=== PATIENT | male | born 1930 | race Caucasian/White ===

== ENCOUNTER 2017-07-02 18:37 | Inpatient (IN) | payer OTHER ==
--- NOTE | 2017-07-02 20:08 | PDOC ---
History of Present Illness - General History Source: Patient, Family Exam Limitations: No Limitations - History of Present Illness Initial Comments: 07/02/17 20:29 The patient is a 86 year old male, with a significant past medical history of Anemia, Colon CA, Liver CA, [place] (1983), IDDM, Esophageal CA, BPH, HTN, HLD, Ascites who presents to the emergency department with generalized weakness and LE edema. Patient BIB family who states the patient was seen by Dr. Crook and since then has been increasingly weak. Patient complains of decreased appetite. Family states he has developed ascites and lower extremity edema. He denies chest pain, headache or dizziness. He denies fever, chills, abdominal pain, nausea, vomit, diarrhea or constipation. He denies dysuria, frequency, urgency or hematuria. Allergies:Penicillins Past surgical history: CABG, L inguinal hernia repair Social history: None PCP: Saira GI: Neftali Onco: Maggie <Meagan Ellis - Last Filed: 07/03/17 00:00> - General History Source: Patient <Nikolas Martines - Last Filed: 07/03/17 21:37> - General Chief Complaint: Weakness Stated Complaint: ca pt, ascitis, jauindice WEAKNESS Time Seen by Provider: 07/02/17 20:03 Past History <Meagan Ellis - Last Filed: 07/03/17 00:00> - Past Medical History Anemia: Yes (IRON DEFICIENCY ANEMIA) Asthma: No Cancer: Yes (colon) Cardiac Disorders: Yes ([place]-1983) CVA: No COPD: No CHF: No Dementia: No Diabetes: Yes (IDDM) GI Disorders: Yes (MADISON'S ESOPHAGUS,ESOPHAGEAL CANCER) Disorders: Yes (BPH) HTN: Yes Hypercholesterolemia: Yes Liver Disease: Yes (ascitis) Seizures: No Thyroid Disease: No - Surgical History Abdominal Surgery: Yes (lt ing.hernia,colon ca) Appendectomy: No Cardiac Surgery: Yes (cabg) Cholecystectomy: No Lung Surgery: No Neurologic Surgery: No Orthopedic Surgery: No - Immunization History Immunization Up to Date: No - Suicide/Smoking/Psychosocial Hx Smoking History: Never smoked Have you smoked in the past 12 months: No Information on smoking cessation initiated: No Hx Alcohol Use: No Drug/Substance Use Hx: No Substance Use Type: None Hx Substance Use Treatment: No <Nikolas Martines - Last Filed: 07/03/17 21:37> - Past Medical History Allergies/Adverse Reactions: Allergies Allergy/AdvReac Type Severity Reaction Status Date / Time Penicillins Allergy Severe Swelling Verified 07/02/17 18:42 Home Medications: Ambulatory Orders Docosahexanoic Acid/Epa [Fish Oil Softgel] 1 each PO DAILY 11/29/15 Glyburide/Metformin HCl [Glyburide-Metformin 5-500 mg] 2 each PO BID 11/29/15 Latanoprost 0.005% Eye Drops [Xalatan 0.005% Eye Drops -] 1 drop OU DAILY Losartan Potassium [Cozaar -] 25 mg PO DAILY 11/29/15 Simvastatin [Zocor -] 20 mg PO DAILY 11/29/15 Amlodipine Besylate [Norvasc -] 5 mg PO DAILY tablet 01/14/16 Aspirin [Aspirin EC] 81 mg PO DAILY #30 tab 01/14/16 Atenolol [Tenormin -] 50 mg PO DAILY tablet 01/14/16 Calcium Carbonate [Calcium] 500 mg PO DAILY 07/02/17 Omeprazole 20 mg PO DAILY 07/02/17 Saxagliptin HCl [Onglyza] 5 mg PO DAILY 07/02/17 Tamsulosin HCl [Flomax] 0.4 mg PO DAILY 07/02/17 Review of Systems - Review of Systems Able to Perform ROS?: Yes Comments:: 07/02/17 20:30 GENERAL/CONSTITUTIONAL: No fever or chills. +generalized weakness. HEAD, EYES, EARS, NOSE AND THROAT: No change in vision. No ear pain or discharge. No sore throat. GASTROINTESTINAL: No nausea, vomiting, diarrhea or constipation. +Decreased appetite. GENITOURINARY: No dysuria, frequency, or change in urination. CARDIOVASCULAR: No chest pain or shortness of breath. RESPIRATORY: No cough, wheezing, or hemoptysis. MUSCULOSKELETAL: No joint or muscle swelling or pain. No neck or back pain. SKIN: No rash NEUROLOGIC: No headache, vertigo, loss of consciousness, or change in strength/ sensation. ENDOCRINE: No increased thirst. No abnormal weight change. HEMATOLOGIC/LYMPHATIC: No anemia, easy bleeding, or history of blood clots. ALLERGIC/IMMUNOLOGIC: No hives or skin allergy. EXTREMITIES: + LE edema. <Meagan Ellis - Last Filed: 07/03/17 00:00> *Physical Exam - Vital Signs Last Vital Signs Temp Pulse Resp BP Pulse Ox 97.4 F L 68 18 122/60 100 07/02/17 18:42 07/02/17 18:42 07/02/17 18:42 07/02/17 18:42 07/02/17 18:42 - Physical Exam Comments: 07/02/17 20:30 GENERAL: Awake, alert, and fully oriented, in no acute distress. +Icteric. HEAD: No signs of trauma EYES: PERRLA, EOMI, sclera anicteric, conjunctiva clear ENT: Auricles normal inspection, hearing grossly normal, nares patent, oropharynx clear without exudates. Moist mucosa NECK: Normal ROM, supple, no lymphadenopathy, JVD, or masses LUNGS: Breath sounds equal, clear to auscultation bilaterally. No wheezes, and no crackles HEART: Regular rate and rhythm, normal S1 and S2, no murmurs, rubs or gallops ABDOMEN: +distended. +Shifting dullness abdomen. Soft, nontender, normoactive bowel sounds. No guarding, no rebound. EXTREMITIES: Normal range of motion, no edema. No clubbing or cyanosis. No cords, erythema, or tenderness. +Bilateral LE1+pitting edema L greater than R. NEUROLOGICAL: Cranial nerves II through XII grossly intact. Normal speech, normal gait SKIN: Warm, Dry, normal turgor, no rashes or lesions noted. <Meagan Ellis - Last Filed: 07/03/17 00:00> - Vital Signs Last Vital Signs Temp Pulse Resp BP Pulse Ox 97.4 F L 68 18 122/60 100 07/02/17 18:42 07/02/17 18:42 07/02/17 18:42 07/02/17 18:42 07/02/17 18:42 <Nikolas Martines - Last Filed: 07/03/17 21:37> Heart Score/ECG Review #1 07/02/[address] Bobbi Cardona. rate 59 bpm Sinus bradycardia with 1st degree AV block L axis deviation Low voltage QRS Possible anterolateral infarct, age undetermined Abdonrmmal ECG <Meagan Ellis - Last Filed: 07/03/17 00:00> ED Treatment Course - LABORATORY CBC & Chemistry Diagram: 07/02/17 20:48 07/02/17 20:48 <Meagan Ellis - Last Filed: 07/03/17 00:00> - LABORATORY CBC & Chemistry Diagram: 07/03/17 09:31 07/03/17 09:31 <Nikolas Martines - Last Filed: 07/03/17 21:37> Medical Decision Making - Medical Decision Making 07/02/17 23:[address] Chávez's service. Dr Kim service operations manager. Awaiting call back. 07/02/17 23:19 Second call placed to Dr. Kim Awaiting call back. 07/03/17 00:00 Third call placed to Dr. Kim Awaiting call back. <Meagan Ellis - Last Filed: 07/03/17 00:00> - Medical Decision Making 07/03/17 21:36 Dr. Martines: The scribe's documentation has been prepared under my direction and personally reviewed by me in its entirery. I confirm that the note above accurately reflects all work, treatment, procedures, and medical decision making performed by me. <Nikolas Martines - Last Filed: 07/03/17 21:37> *DC/Admit/Observation/Transfer - Attestations Scribe Attestion: 07/02/17 20:30 Documentation prepared by Meagan Ellis, acting as medical administrator for Nikolas Martines DO. <Meagan Ellis - Last Filed: 07/03/17 00:00> - Discharge Dispostion Admit: Yes <Nikolas Martines - Last Filed: 07/03/17 21:37> Diagnosis at time of Disposition: Hyperbilirubinemia, Ascites - Referrals
[2017-07-02 21:05] LABS: BASOPHIL 0.1 % (0-2.0); EOSINOPHIL 0.5 % (0-4.5); MCH 34.4 pg (25.7-33.7); MCHC 34.7 g/dl (32.0-35.9); MEAN CELL VOLUME 99.1 fl (80-96); MEAN PLT VOLUME 9.7 fl (7.5-11.1); NEUTROPHILS 85.1 % (42.8-82.8); PLATELET COUNT 212 K/MM3 (134-434); RDW 17.2 % (11.9-15.9); WHITE BLOOD COUNT 9.8 K/mm3 (4.0-10.0)
[2017-07-02 21:35] LABS: ALBUMIN 1.4 g/dl (3.4-5.0); ANION GAP 8 (8-16); CALCIUM 8.2 mg/dL (8.5-10.1); CO2 21 mmol/L (21-32); CREATININE 1.6 mg/dL (0.7-1.3); GLUCOSE,RANDOM 288 mg/dL (74-106); SGPT/ALT 40 U/L (12-78); TOT PROT 4.9 g/dl (6.4-8.2)
[2017-07-02 21:44] LABS: ALK PHOS 448 U/L (45-117)
[2017-07-02 21:46] LABS: INR 3.8 (0.82-1.09); PROTHROMBIN TIME (PATIENT) 42.9 SEC (9.98-11.88)
[2017-07-02 22:18] LABS: MAGNESIUM 2.1 mg/dL (1.8-2.4); SGOT/AST 144 U/L (15-37)
[2017-07-02 22:19] LABS: BILIRUBIN,TOTAL 18.2 mg/dL (0.2-1.0)
[2017-07-03 01:15] VITALS: BMI 32.3
[2017-07-03] MEDS ORDERED: ACETAMINOPHEN 325 MG TABLET (FP) PO PRN (02:52)
[2017-07-03] MEDS: LOSARTAN POTASSIUM 25 MG TABLET PO SCH ×2 (04:41→10:05)
[2017-07-03] MEDS: INSULIN SLIDING SCALE (NOVOLOG) 1 VIAL SQ SCH ×4 (06:54→22:14)
[2017-07-03] MEDS: glyBURIDE 5 MG TABLET (UD) PO SCH ×2 (06:55→18:00)
[2017-07-03] MEDS ORDERED: metFORMIN HCL 500 MG TABLET (FP) PO SCH (07:00)
--- NOTE | 2017-07-03 07:57 | PN ---
Progress Note (short form) - Note Progress Note: ID Full note dictated Alert no distress couph abd pain fevers chills Selected Entries 07/03/17 06:00 Temperature 98.5 F Pulse Rate 76 Respiratory 18 Rate Blood Pressure 105/48 Lung Clear Cor S1 S2 Abd Distended ascites shifting dullness Ext Edema bilaterally Microbiology Laboratory Tests 07/02/17 07/02/17 07/02/17 20:48 20:48 20:48 WBC 9.8 D Hgb 12.1 D Plt Count 212 D Neutrophils % 85.1 H D Lymphocytes % 4.8 L D INR 3.80 H D BUN 35 H D Creatinine 1.6 H D Random Glucose 288 H D Calcium 8.2 L Total Bilirubin 18.2 H* D AST 144 H D ALT 40 D Alkaline Phosphatase 448 H D Assessment Advanced liver Cancer Doubt SBP Plan OBserve off antibiotics Blood cultures orders ??Comfort care measures Gail YBARRA Problem List - Problems (1) Ascites Code(s): R18.8 - OTHER ASCITES (2) Liver cancer Code(s): C22.9 - MALIG NEOPLASM OF LIVER, NOT SPECIFIED PRIMARY OR SEC
[2017-07-03] MEDS: TAMSULOSIN HCL 0.4 MG CAP.ER.24H (FP) PO SCH (08:27)
--- NOTE | 2017-07-03 08:52 | HP ---
Admitting History and Physical - Admission History of Present Illness: 86 year old male, with a significant past medical history of Anemia, Colon CA, Liver CA, [place] (1983), IDDM, Esophageal CA, BPH, HTN, HLD, Ascites who presents to the emergency department with generalized weakness and LE edema. Patient BIB family who states the patient was seen by Dr. Corok and since then has been increasingly weak. Patient complains of decreased appetite. Family states he has developed ascites and lower extremity edema. He denies chest pain, headache or dizziness. He denies fever, chills, abdominal pain, nausea, vomit, diarrhea or constipation. He denies dysuria, frequency, urgency or hematuria. - Past Medical History Cardiovascular: Yes: HTN, Hyperlipdemia Gastrointestinal: Yes: Cancer (colon), Gastritis Heme/Onc: Yes: Anemia Rheumatology: Yes: Gout Endocrine: Yes: Diabetes Mellitus - Past Surgical History Past Surgical History: Yes: Colectomy, Colonoscopy, Upper Endoscopy - Smoking History Smoking history: Never smoked Have you smoked in the past 12 months: No - Alcohol/Substance Use Hx Alcohol Use: No History of Substance Use: reports: None Home Medications - Allergies Allergies/Adverse Reactions: Allergies Allergy/AdvReac Type Severity Reaction Status Date / Time Penicillins Allergy Severe Swelling Verified 07/02/17 18:42 - Home Medications Home Medications: Ambulatory Orders Docosahexanoic Acid/Epa [Fish Oil Softgel] 1 each PO DAILY 11/29/15 Glyburide/Metformin HCl [Glyburide-Metformin 5-500 mg] 2 each PO BID 11/29/15 Latanoprost 0.005% Eye Drops [Xalatan 0.005% Eye Drops -] 1 drop OU DAILY Losartan Potassium [Cozaar -] 25 mg PO DAILY 11/29/15 Simvastatin [Zocor -] 20 mg PO DAILY 11/29/15 Amlodipine Besylate [Norvasc -] 5 mg PO DAILY tablet 01/14/16 Aspirin [Aspirin EC] 81 mg PO DAILY #30 tab 01/14/16 Atenolol [Tenormin -] 50 mg PO DAILY tablet 01/14/16 Calcium Carbonate [Calcium] 500 mg PO DAILY 07/02/17 Omeprazole 20 mg PO DAILY 07/02/17 Saxagliptin HCl [Onglyza] 5 mg PO DAILY 07/02/17 Tamsulosin HCl [Flomax] 0.4 mg PO DAILY 07/02/17 Review of Systems - Review of Systems Constitutional: reports: Weakness Cardiovascular: denies: Chest Pain Respiratory: reports: SOB on Exertion Gastrointestinal: reports: Bloating, Other (DISTENTION) Genitourinary: reports: No Symptoms Musculoskeletal: reports: Extremity Pain, Muscle Weakness Neurological: denies: Confusion, Headache Physical Examination Vital Signs: Vital Signs Temperature 98.5 F 07/03/17 06:00 Pulse Rate 76 07/03/17 06:00 Respiratory Rate 18 07/03/17 06:00 Blood Pressure 105/48 07/03/17 06:00 O2 Sat by Pulse Oximetry (%) 100 07/02/17 23:15 Neck: Yes: Supple Cardiovascular: Yes: S1, S2 Respiratory: Yes: Regular, CTA Bilaterally Gastrointestinal: Yes: Normal Bowel Sounds, Soft, Ascites, Distention. No: Tenderness Edema: Yes Edema: LLE: 3+, RLE: 3+ Problem List - Problems (1) Ascites Assessment/Plan: US DIURETICS GI CONSULT Code(s): R18.8 - OTHER ASCITES (2) Hyperbilirubinemia Assessment/Plan: ABOVE Code(s): E80.6 - OTHER DISORDERS OF BILIRUBIN METABOLISM (3) CAD (coronary artery disease) Assessment/Plan: NO CP Code(s): I25.10 - ATHSCL HEART DISEASE OF [place] CORONARY ARTERY W/O ANG PCTRS (4) Colon cancer Assessment/Plan: ONCOLOGY CONSULT Code(s): C18.9 - MALIGNANT NEOPLASM OF COLON, UNSPECIFIED Qualifiers: Colon location: unspecified part of colon Qualified Code(s): C18.9 - Malignant neoplasm of colon, unspecified
[2017-07-03 08:56] LABS: URINE APPEARANCE SLCLOUDY; URINE BLOOD NEGATIVE (NEGATIVE); URINE COLOR AMBER; URINE GLUCOSE (UA) 1+ (NEGATIVE); URINE KETONE NEGATIVE (NEGATIVE); URINE LEUK ESTERASE NEGATIVE (NEGATIVE); URINE NITRITE NEGATIVE (NEGATIVE); URINE PROTEIN NEGATIVE (NEGATIVE); URINE UROBILINOGEN 4.0 E.U/dl mg/dL (0.2-1.0)
[2017-07-03 09:35] LABS: MCH 33.7 pg (25.7-33.7); MCHC 33.9 g/dl (32.0-35.9); MEAN CELL VOLUME 99.4 fl (80-96); MEAN PLT VOLUME 9.6 fl (7.5-11.1); PLATELET COUNT 227 K/MM3 (134-434); RDW 17.5 % (11.9-15.9); WHITE BLOOD COUNT 12.3 K/mm3 (4.0-10.0)
--- NOTE | 2017-07-03 09:56 | CON.GI ---
Consult Consult Specialty:: GI Reason for Consultation:: metastatic colon CA, ascites, elevated T bili - History of Present Illness Chief Complaint: weakness History of Present Illness: HPI: 86 year old male presented to the ED yesterday evening with the complaint of weakness, lower extremity edema, and ascites. He states that he has been experiencing the swelling in his left leg for about 1 week and the fluid in his belly for several weeks. He also states that the color of his skin has been yellowing for a couple of weeks. He states that he has been having intermittent constipation and his appetite has been down, but he has had normal bowel movements. Patient denies any abdominal pain, nausea, vomiting, diarrhea, chest pain, SOB, fever, chills, calf tenderness. Past Medical History: Anemia, metastatic colon CA (diagnosed 11/29, metastasis to liver found around 12/28), esophageal CA diagnosed over 10 years ago that has resolved, barretts esophagus, [place] (1983), IDDM, HTN, HLD, BPH Past Surgical History: CABG, L inguinal hernia repair, R hemicolectomy (01/05/16) , surgery for esophageal CA many years ago Meds: simvistatin, losartan, latanoprost, glyburide/metformin, atenolol, aspirin , amlodipine, saxagliptin, tamsulosin, omeprazole, CaCO3 Allergies: Penicillin (facial swelling) Smoking: smoked 4-5 cigars/day for many years, quit 1991 Drinking: used to drink, does not remember when he quit Family Hx: mother with unknown cancer, father may have had cancer Living Situation[place] Occupation: retired bank employee Last colonoscopy: 11/29 Last EGD: non recalled PCP: Dr. Chávez GI: Dr. Lindsay Onc: Dr. Chow - History Source History Provided By: Patient Limitations to Obtaining History: No Limitations - Past Medical History Cardio/Vascular: Yes: HTN, Hyperlipdemia Gastrointestinal: Yes: Cancer (colon), Gastritis Heme/Onc: Yes: Anemia, Cancer (Metastatic colon cancer, esophogeal cancer) Rheumatology: Yes: Gout Endocrine: Yes: Diabetes Mellitus - Past Surgical History Past Surgical History: Yes: CABG, Colectomy, Colonoscopy, Hernia Repair, Upper Endoscopy Additional Surgical History: Surgery for esophageal cancer - Alcohol/Substance Use Hx Alcohol Use: No History of Substance Use: reports: None - Smoking History Smoking history: Former smoker (4-5 cigars/day, quit 1991) Have you smoked in the past 12 months: No Home Medications - Allergies Allergies/Adverse Reactions: Allergies Allergy/AdvReac Type Severity Reaction Status Date / Time Penicillins Allergy Severe Swelling Verified 07/02/17 18:42 - Home Medications Home Medications: Ambulatory Orders Docosahexanoic Acid/Epa [Fish Oil Softgel] 1 each PO DAILY 11/29/15 Glyburide/Metformin HCl [Glyburide-Metformin 5-500 mg] 2 each PO BID 11/29/15 Latanoprost 0.005% Eye Drops [Xalatan 0.005% Eye Drops -] 1 drop OU DAILY Losartan Potassium [Cozaar -] 25 mg PO DAILY 11/29/15 Simvastatin [Zocor -] 20 mg PO DAILY 11/29/15 Amlodipine Besylate [Norvasc -] 5 mg PO DAILY tablet 01/14/16 Aspirin [Aspirin EC] 81 mg PO DAILY #30 tab 01/14/16 Atenolol [Tenormin -] 50 mg PO DAILY tablet 01/14/16 Calcium Carbonate [Calcium] 500 mg PO DAILY 07/02/17 Omeprazole 20 mg PO DAILY 07/02/17 Saxagliptin HCl [Onglyza] 5 mg PO DAILY 07/02/17 Tamsulosin HCl [Flomax] 0.4 mg PO DAILY 07/02/17 Family Disease History - Family Disease History Family Disease History: CA: Father, Mother Review of Systems - Review of Systems Constitutional: reports: No Symptoms Eyes: reports: No Symptoms HENT: reports: No Symptoms Neck: reports: No Symptoms Cardiovascular: reports: No Symptoms Respiratory: reports: No Symptoms Gastrointestinal: reports: Bloating, Other (Fluid in abdomen). denies: Abdominal Pain, Constipation, Diarrhea, Dysphagia, Indigestion, Melena, Nausea, Rectal Bleeding, Vomiting, Vomiting Blood Genitourinary: reports: No Symptoms Musculoskeletal: reports: Joint Swelling (L leg swelling) Integumentary: reports: Change in Color (yellowing) Neurological: reports: No Symptoms Endocrine: reports: No Symptoms Hematology/Lymphatic: reports: No Symptoms Psychiatric: reports: No Symptoms Physical Exam-GI Vital Signs: Vital Signs Temperature 98.5 F 07/03/17 06:00 Pulse Rate 76 07/03/17 06:00 Respiratory Rate 18 09/20/17 06:00 Blood Pressure 105/48 07/03/17 06:00 O2 Sat by Pulse Oximetry (%) 100 07/02/17 23:15 Constitutional: Yes: Well Nourished, No Distress, Calm, Obese Eyes: Yes: EOM Intact, Sclera Icterus HENT: Yes: Atraumatic, Normocephalic Neck: Yes: Supple, Trachea Midline Cardiovascular: Yes: Regular Rate and Rhythm, S1, S2. No: Gallop, Murmur, Rub Respiratory: Yes: Regular, CTA Bilaterally. No: Rales, Rhonchi, SOB, Stridor, Wheezes Gastrointestinal Inspection: Yes: Ascites, Distention, Scars (Midline longitudinal surgical scar noted above umbilicus) ...Auscultate: Yes: Normoactive Bowel Sounds ...Percussion: Yes: Dullness, Fluid Wave ...Rectal Exam: Yes: WNL, Guaiac Negative, Sphincter Tone Normal Extremities: Yes: Other. No: Calf Tenderness Edema: Yes Edema: LLE: 2+, RLE: 1+ Peripheral Pulses WNL: Yes Integumentary: Yes: WNL Neurological: Yes: Alert, Oriented, Cran Nerves II-XII Intact ...Motor Strength: WNL Psychiatric: Yes: Alert, Oriented Labs: CBC, BMP CBC,CMP WBC 12.3 K/mm3 (4.0-10.0) H 07/03/17 09:31 RBC 3.62 M/mm3 (4.00-5.60) L 07/03/17 09:31 Hgb 12.2 GM/dL (11.7-16.9) 07/03/17 09:31 Hct 36.0 % (35.4-49) 07/03/17 09:31 MCV 99.4 fl (80-96) H 07/03/17 09:31 MCH 33.7 pg (25.7-33.7) 07/03/17 09:31 MCHC 33.9 g/dl (32.0-35.9) 07/03/17 09:31 RDW 17.5 % (11.9-15.9) H 07/03/17 09:31 Plt Count 227 K/MM3 (134-434) 07/03/17 09:31 MPV 9.6 fl (7.5-11.1) 07/03/17 09:31 Neutrophils % 85.1 % (42.8-82.8) H D 07/02/17 20:48 Lymphocytes % 4.8 % (8-40) L D 07/02/17 20:48 Monocytes % 9.5 % (3.8-10.2) 07/02/17 20:48 Eosinophils % 0.5 % (0-4.5) D 07/02/17 20:48 Basophils % 0.1 % (0-2.0) 07/02/17 20:48 Sodium 137 mmol/L (136-145) 07/03/17 09:31 Potassium 3.9 mmol/L (3.5-5.1) D 07/03/17 09:31 Chloride 106 mmol/L (98-107) 07/03/17 09:31 Carbon Dioxide 22 mmol/L (21-32) 07/03/17 09:31 Anion Gap 9 (8-16) 07/03/17 09:31 BUN 35 mg/dL (7-18) H 07/03/17 09:31 Creatinine 1.4 mg/dL (0.7-1.3) H 07/03/17 09:31 Creat Clearance w eGFR 48.16 (>60) 07/03/17 09:31 POC Glucometer 195 UNITS (()) 07/03/17 06:41 Random Glucose 192 mg/dL (74-106) H D 07/03/17 09:31 Calcium 8.4 mg/dL (8.5-10.1) L 07/03/17 09:31 Magnesium 2.1 mg/dL (1.8-2.4) D 07/02/17 20:48 Total Bilirubin 18.6 mg/dL (0.2-1.0) H* 07/03/17 09:31 Direct Bilirubin 14.7 mg/dL (0.0-0.2) H* 07/03/17 09:31 AST 121 U/L (15-37) H 07/03/17 09:31 ALT 37 U/L (12-78) 07/03/17 09:31 Alkaline Phosphatase 485 U/L (45-117) H 07/03/17 09:31 Ammonia 56 umol/L (11-32) H 07/02/17 21:00 B-Natriuretic Peptide 505.72 pg/ml (5-450) H 07/02/17 20:48 Total Protein 4.9 g/dl (6.4-8.2) L 07/03/17 09:31 Albumin 1.5 g/dl (3.4-5.0) L 07/03/17 09:31 Imaging - Results Chest X-ray: Report Reviewed (No acute pulmonary process), Image Reviewed Problem List - Problems (1) Ascites Code(s): R18.8 - OTHER ASCITES (2) Hyperbilirubinemia Code(s): E80.6 - OTHER DISORDERS OF BILIRUBIN METABOLISM (3) Liver cancer Code(s): C22.9 - MALIG NEOPLASM OF LIVER, NOT SPECIFIED PRIMARY OR SEC (4) Colon cancer Code(s): C18.9 - MALIGNANT NEOPLASM OF COLON, UNSPECIFIED Qualifiers: Colon location: unspecified part of colon Qualified Code(s): C18.9 - Malignant neoplasm of colon, unspecified (5) Weakness Code(s): R53.1 - WEAKNESS Assessment/Plan 86 year old male w/ a pmh of metastatic colon CA to the liver, [place], IDDM, HTN, HLD, BPH, is seen by GI for evaluation of ascites, hyperbilirubinemia, jaundice , elevated LFTs and LE edema likely 2/2 metastatic infiltration of liver -direct bilirubin 14.7, suggesting acute obstructive process of bile ducts -AP is elevated at 485 (up from 448) further suggesting acute bile duct obstructive process -Ultrasound abdomen -Abdominal MRI/MRCP -recommend the possibility of peritoneal drain to remove ascitic fluid -new onset leukocytosis, ID on board (cultures drawn)
[2017-07-03 10:01] LABS: ALBUMIN 1.5 g/dl (3.4-5.0); ANION GAP 9 (8-16); CALCIUM 8.4 mg/dL (8.5-10.1); CO2 22 mmol/L (21-32); CREATININE 1.4 mg/dL (0.7-1.3); GLUCOSE,RANDOM 192 mg/dL (74-106); SGPT/ALT 37 U/L (12-78); TOT PROT 4.9 g/dl (6.4-8.2)
[2017-07-03] MEDS: amLODIPine BESYLATE 5 MG TABLET (FP) PO SCH (10:04)
[2017-07-03] MEDS: ATENOLOL 50 MG TABLET (FP) PO SCH (10:04)
[2017-07-03] MEDS: ASPIRIN COATED 81 MG TABLET.EC PO SCH (10:05)
[2017-07-03] MEDS: PANTOPRAZOLE 40 MG TABLET (FP) PO SCH (10:05)
[2017-07-03 10:09] LABS: ALK PHOS 485 U/L (45-117)
[2017-07-03 10:13] LABS: SGOT/AST 121 U/L (15-37)
[2017-07-03 10:14] LABS: BILIRUBIN,TOTAL 18.6 mg/dL (0.2-1.0)
[2017-07-03 10:15] LABS: BILIRUBIN,DIRECT 14.7 mg/dL (0.0-0.2)
[2017-07-03] MEDS ORDERED: FLU VACCINE QUAD 60 MCG/0.5 ML (MDV 17-18) IM ONE (11:00)
--- NOTE | 2017-07-03 11:00 | CONSULT ---
Consult Consult Specialty:: Oncology - History of Present Illness History of Present Illness: Patient seen and examined. He follows with of [facility] for [facility]. Briefly his Oncological Hx is: "Stage IV colon ca, mets to liver, abd, and retroperitoneum.Started palliative capecitabine approx for last 8m and was recently seen in their office with increased fatigue, and mild CEA elevation and lonsurf was denied. has noticed rising bili and was thought it was likely due to disease progression.Was seen in [facility] office on 07/02/2017 and met with pt's family as pt too weak to make to the appt and family informed that they noted pt 's abd was much distended and had LE swelling. And was told that family would be taking the pt to [facility] ER . also indicated that the possibility of Home Hospice placement as treatment options will be quite limited if unable to normalize LFTs. US Abdomen on 06/20/2017 done at [facility]: IMPRESSION: Solid hepatic nodules compatible with metastatic disease, correlate with a PET/ CT scan from August 06, 2016. Mild upper abdominal ascites. Mild diffuse thickening of the gallbladder wall, likely related to ascites. Complex cystic structure, left kidney for which further evaluation with CT, MR or ultrasound surveillance, is recommended. There is no intrahepatic biliary ductal dilatation. The common duct measures 0.6 cm. His renal function was normal earlier this month and his bili's were going up around that time too. " Patient seen and examined. - History Source History Provided By: Patient, Medical Record - Past Medical History Cardio/Vascular: Yes: HTN, Hyperlipdemia Gastrointestinal: Yes: Cancer (colon), Gastritis Rheumatology: Yes: Gout Endocrine: Yes: Diabetes Mellitus - Past Surgical History Past Surgical History: Yes: CABG, Colectomy, Colonoscopy, Hernia Repair, Upper Endoscopy Additional Surgical History: Surgery for esophageal cancer - Alcohol/Substance Use Hx Alcohol Use: No History of Substance Use: reports: None - Smoking History Smoking history: Former smoker (4-5 cigars/day, quit 1991) Have you smoked in the past 12 months: No Home Medications - Allergies Allergies/Adverse Reactions: Allergies Allergy/AdvReac Type Severity Reaction Status Date / Time Penicillins Allergy Severe Swelling Verified 07/02/17 18:42 - Home Medications Home Medications: Ambulatory Orders Docosahexanoic Acid/Epa [Fish Oil Softgel] 1 each PO DAILY 11/29/15 Glyburide/Metformin HCl [Glyburide-Metformin 5-500 mg] 2 each PO BID 11/29/15 Latanoprost 0.005% Eye Drops [Xalatan 0.005% Eye Drops -] 1 drop OU DAILY Losartan Potassium [Cozaar -] 25 mg PO DAILY 11/29/15 Simvastatin [Zocor -] 20 mg PO DAILY 11/29/15 Amlodipine Besylate [Norvasc -] 5 mg PO DAILY tablet 01/14/16 Aspirin [Aspirin EC] 81 mg PO DAILY #30 tab 01/14/16 Atenolol [Tenormin -] 50 mg PO DAILY tablet 01/14/16 Calcium Carbonate [Calcium] 500 mg PO DAILY 07/02/17 Omeprazole 20 mg PO DAILY 07/02/17 Saxagliptin HCl [Onglyza] 5 mg PO DAILY 07/02/17 Tamsulosin HCl [Flomax] 0.4 mg PO DAILY 07/02/17 Family Disease History - Family Disease History Family Disease History: CA: Father, Mother Physical Exam Vital Signs: Vital Signs Temperature 97.6 F 07/03/17 10:02 Pulse Rate 73 07/03/17 10:02 Respiratory Rate 18 07/03/17 10:02 Blood Pressure 98/50 07/03/17 10:02 O2 Sat by Pulse Oximetry (%) 100 07/02/17 23:15 Constitutional: Yes: Mild Distress, Poor Hygeine Eyes: Yes: Sclera Icterus HENT: Yes: Atraumatic, Normocephalic Neck: Yes: Supple, Trachea Midline Cardiovascular: Yes: Regular Rate and Rhythm Respiratory: Yes: Regular Gastrointestinal: Yes: Ascites. No: Tenderness, Epigastrium, Tenderness, Rebound Edema: Yes Psychiatric: Yes: Alert, Oriented Labs: CBC, BMP 07/03/17 09:31 07/03/17 09:31 Imaging - Results Ultrasound: Pending Problem List - Problems (1) Ascites Code(s): R18.8 - OTHER ASCITES (2) Hyperbilirubinemia Code(s): E80.6 - OTHER DISORDERS OF BILIRUBIN METABOLISM (3) Coagulopathy Code(s): D68.9 - COAGULATION DEFECT, UNSPECIFIED (4) Metastatic colon cancer to liver Code(s): C18.9 - MALIGNANT NEOPLASM OF COLON, UNSPECIFIED C78.7 - SECONDARY MALIG NEOPLASM OF LIVER AND INTRAHEPATIC BILE DUCT (5) Hx of CABG Code(s): Z95.1 - PRESENCE OF AORTOCORONARY BYPASS GRAFT Assessment/Plan Metastatic colon cancer , with liver mets, off of treatment. coagulopthy from liver mets. palliative care. -will reverse his INR, Vit K now, FFP at 3:00am on 07/04, repeat INR at 6:00am and depending on the repeat INR will see if he would need more FFP -Spoke to IR, , if INR is reversed and family/pt agrees, a peritoneal catheter would be able to be put in for palliative purposes. Family agrees, likely tomorrow once INR is corrected. -palliative care consulted. -GI consult noted Initially, I have spoken to of [facility] and he concurred with the plan and he has already discussed about the limited options and home hospice to the family. Later, I have called Arlette , daughter of , explained to her in detailed about the correction of coaguloapthy, planned for peritoneal catheter and home hospice. She is in agreement with everything as she mentioned to me they were prepared by OP oncologist. She herself approached the topic of DNR/ DNI and she mentioned to me that they are in discussion with her father. I have spoken to palliative care consult. will fu on recs. Communicated with pts RN . d/w .
--- NOTE | 2017-07-03 11:29 | EKG ---
Test Reason : Blood Pressure : / mmHG Vent. Rate : 059 BPM Atrial Rate : 059 BPM P-R Int : 240 ms QRS Dur : 102 ms QT Int : 446 ms P-R-T Axes : 052 -36 005 degrees QTc Int : 441 ms SINUS BRADYCARDIA WITH 1ST DEGREE A-V BLOCK LEFT AXIS DEVIATION LOW VOLTAGE QRS POSSIBLE ANTEROLATERAL INFARCT , AGE UNDETERMINED ABNORMAL ECG WHEN COMPARED WITH ECG OF 03-FEB-2016 11:07, BORDERLINE CRITERIA FOR ANTERIOR INFARCT ARE NOW PRESENT BORDERLINE CRITERIA FOR ANTEROLATERAL INFARCT ARE NOW PRESENT Confirmed by MANDIE YBARRA, NIK ([id number]) on 07/03/2017 11:29:15 AM Referred By: Confirmed By:NIK LOCKWOOD MD
[2017-07-03] MEDS ORDERED: INSULIN (NOVOLOG) ASPART 100 UNITS/ML 10ML VIAL ONE (11:46)
[2017-07-03] MEDS: FUROSEMIDE 40 MG/4 ML INJECTABLE VIAL IVPUSH SCH (12:03)
--- NOTE | 2017-07-03 12:15 | PN ---
Teaching Attending Note Name of Resident: Ayan Fisher ATTENDING PHYSICIAN STATEMENT I saw and evaluated the patient. I reviewed the resident's note and discussed the case with the resident. I agree with the resident's findings and plan as documented. SUBJECTIVE: 86M admitted for progressive jaundice, abdominal distention, weakness and LE swelling Has a known h/o metastatic colon cancer with multiple liver lesions seen on recent US performed by his primary oncologist Dr. Crook: Per Dr. iglesias' s note, Abd US revealed 6mm CBD and no intrahepatic biliary duct dilation No abdominal pain OBJECTIVE: Afebrile/73/108/60 + Icterus Hrt RRR Lungs CTA B/L Abdomen: protuberant, + BS, softly distended, non-tender Ext: 2+ LE edema to thighs On imaging: No imaging reported On labs: WBC: 12 TB:18 ALP: 400 ASSESSMENT Painless cholestatic liver dysfunction: Given history, liver dysfunction secondary to liver tumor burden would need to be highest in the differential. Previous US failed to reveal a dilated biliary tract that would be suspicious for obstructive process. PLAN: I have ordered abdominal US to assess ascites and MRCP to assess biliary tract/ liver parenchyma. Intraperitoneal Drain for palliation should also be considered once coagulopathy permits. Per discussion with Dr. Rangel, palliative care was being discussed by Dr. Crook and Mr. Jin/ his family and this will be continued while at [facility].
[2017-07-03] MEDS ORDERED: PHYTONADIONE 10 MG/1 ML AMP IVPB ONE (14:14)
--- NOTE | 2017-07-03 16:57 | CONS ---
DATE OF CONSULTATION: DATE OF DICTATION: 07/03/2017 This is one of several admissions for this 85-year-old male with known history of colon cancer with liver metastasis status post right hemicolectomy 2016. He is admitted now because of increasing edema and ascites. He has been followed by Dr. Caleb Crook of Oncology in the [place], and apparently is now being considered for comfort care measures according to his primary doctor, Dr. Chávez. We had consulted on him in the past in January of 2016, at which time he was treated for a Streptococcus intermedius bacteremia. He also had an infected wound at that time with polymicrobial jason. Currently I am asked to see him, though he has no fever, chills, cough, or abdominal pain to suggest active infection. He denied any urinary complaints. PAST MEDICAL HISTORY: Includes colon cancer, liver cancer, insulin-dependent diabetes, esophageal cancer, hypertension, prior OH. CURRENT MEDICATIONS: Tamsulosin, omeprazole, atenolol, aspirin, amlodipine, simvastatin, losartan, glyburide. ALLERGIES: PENICILLIN. SOCIAL HISTORY: Never smoked. No history of alcohol use. PRIOR SURGERY: Coronary artery bypass graft surgery and surgery for colon cancer, left inguinal hernia. FAMILY HISTORY: Reviewed and noncontributory. REVIEW OF SYSTEMS: Respiratory: No cough, shortness of breath, hemoptysis. Cardiac: No chest pain, palpitations, syncope. Gastrointestinal: Abdominal distention, mild "stomach pain." No diarrhea, blood per rectum, hematemesis. Genitourinary: No dysuria, hematuria. PHYSICAL EXAMINATION: General: He was an alert male in no acute distress. Vital Signs: Temperature 98.5, pulse 76, blood pressure 105/48, respirations 18. Neck: Supple. Lungs: Clear to P&A. Heart: S1, S2, regular rhythm without audible murmur. Abdomen: Soft, distended, with palpable ascites with a fluid wave and shifting dullness. Normoactive bowel sounds. No tenderness, guarding, rebound. Extremities: Bilateral lower extremity edema. LABORATORY: The white count 9.8, hemoglobin 12.1, platelets 212. INR 3.8. BUN 35, creatinine 1.6, glucose 288, bilirubin 18. AST 144, alkaline phosphatase 448. Urinalysis pending. Two sets of blood cultures thus far no growth. Chest x-ray shows no acute infiltrate. ASSESSMENT: An 86-year-old male with metastatic liver cancer with likely malignant ascites and progressive anasarca. No evidence of active infection at this time. For now would observe off antibiotics. Blood cultures were sent through the emergency room. To be discussed with his oncologist regarding implementation of comfort care measures. Case discussed with Dr. Chávez. CONI ZELAYA M.D. [id number]
[2017-07-03] MEDS ORDERED: PT OWN MED DRAWER 7, Y5N ONE (17:38)
[2017-07-03] MEDS: LATANOPROST 0.005% OPHTH SOLN 2.5ML BOTTLE OD SCH (22:14)
[2017-07-04] MEDS: INSULIN SLIDING SCALE (NOVOLOG) 1 VIAL SQ SCH ×4 (06:34→22:18)
[2017-07-04] MEDS: glyBURIDE 5 MG TABLET (UD) PO SCH ×2 (06:34→18:40)
[2017-07-04 08:14] LABS: BASOPHIL 0.4 % (0-2.0); EOSINOPHIL 2.1 % (0-4.5); MCH 34.1 pg (25.7-33.7); MCHC 34.4 g/dl (32.0-35.9); MEAN CELL VOLUME 98.9 fl (80-96); MEAN PLT VOLUME 9.5 fl (7.5-11.1); NEUTROPHILS 81.1 % (42.8-82.8); PLATELET COUNT 179 K/MM3 (134-434); RDW 16.9 % (11.9-15.9); WHITE BLOOD COUNT 9.3 K/mm3 (4.0-10.0)
[2017-07-04] MEDS ORDERED: PT OWN MED DRAWER 7, Y5N ONE ×3 (08:20→21:15)
[2017-07-04 08:25] LABS: INR 1.33 (0.82-1.09); PROTHROMBIN TIME (PATIENT) 14.7 SEC (9.98-11.88)
[2017-07-04 08:47] LABS: ALBUMIN 1.7 g/dl (3.4-5.0); ANION GAP 10 (8-16); CALCIUM 8.4 mg/dL (8.5-10.1); CO2 23 mmol/L (21-32); CREATININE 1.3 mg/dL (0.7-1.3); GLUCOSE,RANDOM 65 mg/dL (74-106); SGOT/AST 102 U/L (15-37); SGPT/ALT 31 U/L (12-78)
[2017-07-04 08:51] LABS: ACTIVATED PTT 32.5 SECONDS (26.9-34.4)
[2017-07-04 08:57] LABS: ALK PHOS 374 U/L (45-117)
[2017-07-04 09:04] LABS: TOT PROT 4.6 g/dl (6.4-8.2)
[2017-07-04 09:13] LABS: BILIRUBIN,TOTAL 19.9 mg/dL (0.2-1.0)
[2017-07-04] MEDS: TAMSULOSIN HCL 0.4 MG CAP.ER.24H (FP) PO SCH (10:04)
--- NOTE | 2017-07-04 12:29 | DS ---
Physical Examination Vital Signs: Vital Signs Temperature 97.6 F 07/04/17 09:54 Pulse Rate 66 07/04/17 12:06 Respiratory Rate 17 07/04/17 12:06 Blood Pressure 106/50 07/04/17 12:06 O2 Sat by Pulse Oximetry (%) 97 07/04/17 12:06 Constitutional: Yes: Calm Eyes: Yes: Sclera Icterus Cardiovascular: Yes: Regular Rate and Rhythm, S1, S2 Respiratory: Yes: CTA Bilaterally Gastrointestinal: Yes: Soft, Other (pleurex cath) Edema: Yes Neurological: Yes: Alert, Oriented Labs: CBC, BMP 07/04/17 07:30 07/04/17 06:00 Discharge Summary Reason For Visit: HYPERBILIRUBINEMIA Current Active Problems ACS (acute coronary syndrome) (Acute) Ascites (Acute) Chest pain (Acute) Coagulopathy (Acute) Hyperbilirubinemia (Acute) Liver cancer (Acute) Metastatic colon cancer to liver (Acute) Open abdominal wall wound (Acute) Hospital Course: - Admission History of Present Illness: 86 year old male, with a significant past medical history of Anemia, Colon CA, Liver CA, OR (1983), IDDM, Esophageal CA, BPH, HTN, HLD, Ascites who presents to the emergency department with generalized weakness and LE edema. Patient BIB family who states the patient was seen by Dr. Crook and since then has been increasingly weak. Patient complains of decreased appetite. Family states he has developed ascites and lower extremity edema. He denies chest pain, headache or dizziness. He denies fever, chills, abdominal pain, nausea, vomit, diarrhea or constipation. He denies dysuria, frequency, urgency or hematuria. - Past Medical History Cardiovascular: Yes: HTN, Hyperlipdemia Gastrointestinal: Yes: Cancer (colon), Gastritis Heme/Onc: Yes: Anemia Rheumatology: Yes: Gout Endocrine: Yes: Diabetes Mellitus - Past Surgical History Past Surgical History: Yes: Colectomy, Colonoscopy, Upper Endoscopy - Smoking History Smoking history: Never smoked Have you smoked in the past 12 months: No - Alcohol/Substance Use Hx Alcohol Use: No History of Substance Use: reports: None per oncology note below: "Stage IV colon ca, mets to liver, abd, and retroperitoneum.Started palliative capecitabine approx for last 8m and was recently seen in their office with increased fatigue, and mild CEA elevation and lonsurf was denied. has noticed rising bili and was thought it was likely due to disease progression.Was seen in [facility] office on 07/02/2017 and met with pt's family as pt too weak to make to the appt and family informed that they noted pt 's abd was much distended and had LE swelling. And was told that family would be taking the pt to [facility] ER . also indicated that the possibility of Home Hospice placement as treatment options will be quite limited if unable to normalize LFTs. US Abdomen on 06/20/2017 done at [facility]: IMPRESSION: Solid hepatic nodules compatible with metastatic disease, correlate with a PET/ CT scan from August 06, 2016. Mild upper abdominal ascites. Mild diffuse thickening of the gallbladder wall, likely related to ascites. Complex cystic structure, left kidney for which further evaluation with CT, MR or ultrasound surveillance, is recommended. There is no intrahepatic biliary ductal dilatation. The common duct measures 0.6 cm. His renal function was normal earlier this month and his bili's were going up around that time too. " hospital course: in ER he was note: elevated Lft and elevate renal function vascular sono was done :no dvt abdomen US shows mod ascites with two hepatic lesion liver dysfunction and elevated bilirubin level coagulopathy reversed with FFP and vitamin K to get intraperitoeneal drain- s/p pleurex cath placement and drain 2400ml family wants home hospice with [facility] - patient to go home with home hospice patient signed papers for dnr/dni Condition: Guarded - Instructions Referrals: Fran Chávez MD [Primary Care Provider] - Disposition: VNS/HOME HEALTH CARE - Home Medications Comprehensive Discharge Medication List: Ambulatory Orders Docosahexanoic Acid/Epa [Fish Oil Softgel] 1 each PO DAILY 11/29/15 Glyburide/Metformin HCl [Glyburide-Metformin 5-500 mg] 2 each PO BID 11/29/15 Latanoprost 0.005% Eye Drops [Xalatan 0.005% Eye Drops -] 1 drop OU DAILY Losartan Potassium [Cozaar -] 25 mg PO DAILY 11/29/15 Simvastatin [Zocor -] 20 mg PO DAILY 11/29/15 Amlodipine Besylate [Norvasc -] 5 mg PO DAILY tablet 01/14/16 Aspirin [Aspirin EC] 81 mg PO DAILY #30 tab 01/14/16 Atenolol [Tenormin -] 50 mg PO DAILY tablet 01/14/16 Calcium Carbonate [Calcium] 500 mg PO DAILY 07/02/17 Omeprazole 20 mg PO DAILY 07/02/17 Saxagliptin HCl [Onglyza] 5 mg PO DAILY 07/02/17 Tamsulosin HCl [Flomax] 0.4 mg PO DAILY 07/02/17
[2017-07-04] MEDS: LOSARTAN POTASSIUM 25 MG TABLET PO SCH (14:09)
[2017-07-04] MEDS: amLODIPine BESYLATE 5 MG TABLET (FP) PO SCH (14:09)
[2017-07-04] MEDS: ATENOLOL 50 MG TABLET (FP) PO SCH (14:10)
[2017-07-04] MEDS: PANTOPRAZOLE 40 MG TABLET (FP) PO SCH (14:14)
[2017-07-04] MEDS: ASPIRIN COATED 81 MG TABLET.EC PO SCH (14:14)
[2017-07-04 14:37] LABS: PERITONEAL FLUID EOSINOPHIL 1 %; PERITONEAL FLUID LYMPHOCYTE 69 %; PERITONEAL FLUID MACROPHAGE 20 %; PERITONEAL FLUID MONOCYTE 13 %; PERITONEAL FLUID NEUTROPHIL 17 %
[2017-07-04] MEDS: FUROSEMIDE 40 MG/4 ML INJECTABLE VIAL IVPUSH SCH (14:55)
[2017-07-04] MEDS: LATANOPROST 0.005% OPHTH SOLN 2.5ML BOTTLE OD SCH (22:17)
[2017-07-05] MEDS: INSULIN SLIDING SCALE (NOVOLOG) 1 VIAL SQ SCH (06:47)
[2017-07-05] MEDS: glyBURIDE 5 MG TABLET (UD) PO SCH (06:47)
[2017-07-05 09:21] VITALS: BP 110/52; PULSE 68; TEMP 97.5
--- NOTE | 2017-07-05 11:12 | PN ---
Progress Note, Physician Chief Complaint: patient seen today he is awaitng to go home family at bedside to learn about how to drain pleurex - Current Medication List Current Medications: Active Medications Acetaminophen (Tylenol -) 650 mg PO Q6H PRN PRN Reason: FEVER OR PAIN Amlodipine Besylate (Norvasc -) 5 mg PO DAILY COUNTS INCLUDE 234 BEDS AT THE [facility] Last Admin: 07/04/17 14:09 Dose: Not Given Aspirin (Ecotrin -) 81 mg PO DAILY COUNTS INCLUDE 234 BEDS AT THE [facility] Last Admin: 07/04/17 14:14 Dose: 81 mg Atenolol (Tenormin -) 50 mg PO DAILY COUNTS INCLUDE 234 BEDS AT THE [facility] Last Admin: 07/04/17 14:10 Dose: Not Given Glyburide (Diabeta -) 5 mg PO BID@0700,1630 COUNTS INCLUDE 234 BEDS AT THE [facility] Last Admin: 07/05/17 06:47 Dose: Not Given Insulin Aspart (Novolog Vial Sliding Scale -) 1 vial SQ ACHS COUNTS INCLUDE 234 BEDS AT THE [facility] PRN Reason: Protocol Last Admin: 07/05/17 06:47 Dose: Not Given Latanoprost (Xalatan 0.005% Eye Drops -) 1 drop OD HS COUNTS INCLUDE 234 BEDS AT THE [facility] Last Admin: 07/04/17 22:17 Dose: 1 drop Losartan Potassium (Cozaar -) 25 mg PO DAILY COUNTS INCLUDE 234 BEDS AT THE [facility] Last Admin: 07/04/17 14:09 Dose: Not Given Pantoprazole Sodium (Protonix -) 40 mg PO DAILY COUNTS INCLUDE 234 BEDS AT THE [facility] Last Admin: 07/04/17 14:14 Dose: 40 mg Tamsulosin HCl (Flomax -) 0.4 mg PO DAILY@0830 COUNTS INCLUDE 234 BEDS AT THE [facility] Last Admin: 07/04/17 10:04 Dose: Not Given - Objective Vital Signs: Vital Signs Temperature 97.5 F L 07/05/17 09:20 Pulse Rate 68 07/05/17 09:20 Respiratory Rate 20 07/05/17 09:20 Blood Pressure 110/52 07/05/17 09:20 O2 Sat by Pulse Oximetry (%) 97 07/04/17 21:00 Constitutional: Yes: Calm Eyes: Yes: Sclera Icterus Cardiovascular: Yes: Regular Rate and Rhythm, S1, S2 Respiratory: Yes: CTA Bilaterally, Diminished (at bases) Gastrointestinal: Yes: Normal Bowel Sounds, Soft, Ascites, Other (pleurex catherter) Edema: Yes Edema: LLE: 2+, RLE: 2+ Neurological: Yes: Alert, Oriented Labs: CBC, BMP 07/04/17 07:30 07/04/17 06:00 INR, PTT INR 1.33 (0.82-1.09) H D 07/04/17 07:30 Fibrinogen 421.0 mg/dL (238-498) 07/04/17 07:30 Problem List - Problems (1) Ascites Assessment/Plan: s/p pleurex cath 2.4 litre [facility] Code(s): R18.8 - OTHER ASCITES (2) Coagulopathy Assessment/Plan: reveresed for pleurex cath placement Code(s): D68.9 - COAGULATION DEFECT, UNSPECIFIED (3) Hyperbilirubinemia Assessment/Plan: sec to [facility] home hospice was on palliative chemo Code(s): E80.6 - OTHER DISORDERS OF BILIRUBIN METABOLISM (4) Metastatic colon cancer to liver Assessment/Plan: home hospice [facility] Code(s): C18.9 - MALIGNANT NEOPLASM OF COLON, UNSPECIFIED C78.7 - SECONDARY MALIG NEOPLASM OF LIVER AND INTRAHEPATIC BILE DUCT
[2017-07-05] MEDS: ATENOLOL 50 MG TABLET (FP) PO SCH ×2 (11:33→11:47)
[2017-07-05] MEDS: TAMSULOSIN HCL 0.4 MG CAP.ER.24H (FP) PO SCH (11:33)
[2017-07-05] MEDS: amLODIPine BESYLATE 5 MG TABLET (FP) PO SCH ×2 (11:33→11:46)
[2017-07-05] MEDS: ASPIRIN COATED 81 MG TABLET.EC PO SCH (11:33)
[2017-07-05] MEDS: PANTOPRAZOLE 40 MG TABLET (FP) PO SCH (11:33)
[2017-07-05] MEDS: LOSARTAN POTASSIUM 25 MG TABLET PO SCH ×2 (11:33→11:46)
--- NOTE | 2017-07-08 17:23 | PATH ---
Cytology Non-Gynecological Report Patient Name: CRISTINA MAYES [facility]. Rec. #: [id number] /Age/Gender: 1930 (Age: 86) / M Account: [id number] Location: [address] [place] [address] Taken: 07/04/2017 Received: 07/04/2017 Reported: 07/08/2017 Physicians: Gene Mondragon M.D. Amara Nandikolla, M.D. Daniel Friedman, M.D. Christopher DiGiorno, D.O. Specimen(s) Received PERITONEAL FLUID Clinical History None given Final Diagnosis PERITONEAL FLUID, PARACENTESIS: SATISFACTORY FOR EVALUATION. RARE ATYPICAL CELLS PRESENT, INSUFFICIENT FOR FURTHER CHARACTERIZATION. MACROPHAGES, MESOTHELIAL CELLS, AND WHITE BLOOD CELLS PRESENT. Comment: Immunohistochemical stains performed at [place], [place] ([id number]) and interpreted at [facility] show the following results: Rare cells show questionable weak reactivity with BENIGNO and MOC-31. CK20, CDX2, and CDH17 are negative. Calretinin, CK7, WT-1 and CK5/6 stain background mesothelial cells. Recommend correlation with clinical findings and followup is clinically indicated. Electronically Signed Terry Barakat M.D. Gross Description Approximately 50 cc of bloody fluid received fixed in 50% alcohol. Two cytofunnels and one cellblock prepared.
== END 2017-07-05 11:46 | disposition home health service (06) | DRG 375 ==
LOC: JER 18:37 → JERBED 07-03 00:43 → J5S 07-03 00:57
PROVIDERS: ADMIT Family Medicine; ATTEND Family Medicine
PROC: 0W9G30Z Drainage of Peritoneal Cavity with Drainage Device, Percutaneous Approach (ICD-10-PCS; principal; 2017-07-04)
DX: C18.9 Malignant neoplasm of colon, unspecified (principal); R18.0 Malignant ascites; C78.7 Secondary malignant neoplasm of liver and intrahepatic bile duct; C78.6 Secondary malignant neoplasm of retroperitoneum and peritoneum; C79.89 Secondary malignant neoplasm of other specified sites; D68.9 Coagulation defect, unspecified; I24.9 Acute ischemic heart disease, unspecified; Z85.01 Personal history of malignant neoplasm of esophagus; E80.6 Other disorders of bilirubin metabolism; I25.2 Old myocardial infarction; E11.9 Type 2 diabetes mellitus without complications; Z79.4 Long term (current) use of insulin; I10 Essential (primary) hypertension; E78.5 Hyperlipidemia, unspecified; N40.0 Benign prostatic hyperplasia without lower urinary tract symptoms; Z95.1 Presence of aortocoronary bypass graft; I44.0 Atrioventricular block, first degree; Z87.891 Personal history of nicotine dependence; D50.9 Iron deficiency anemia, unspecified; Z66 Do not resuscitate; I25.10 Atherosclerotic heart disease of native coronary artery without angina pectoris; M10.9 Gout, unspecified; Z80.9 Family history of malignant neoplasm, unspecified; Z90.49 Acquired absence of other specified parts of digestive tract
CPT/HCPCS: 36415; 36430; 49418; 71010-TC; 74181-TC; 76700-TC; 76942-TC; 80053; 81003; 82042; 82140; 82150; 82248; 82378; 82945; 83615; 83735; 83880; 84157; 84478; 85025; 85027; 85384; 85610; 85730; 86850; 86900; 86901; 87040; 87070; 87075; 87086; 87102; 87116; 87205; 87206; 87210; 88108; 88305-TC; 89051; 90688; 93005; 93010; 93970-TC; 99284-25; C1729; C1769; C1894; G0008; P9017